=== PATIENT | female | born 1945 | race Two or more races ===

== ENCOUNTER 2016-12-11 10:34 | Inpatient (IN) | payer OTHER ==
[~2016-12-11 10:34] MED LIST: BACITRACIN 50,000 UNITS/10 ML SYR IRR ONE; BUPIVACAINE 0.25% 30 ML SDV ONE; BUPIVACAINE/EPI 0.25% 30 ML SDV ONE; NS IV ONE; THROMBIN (BOVINE) 20,000 UNIT VIAL TP ONE; TRANEXAMIC ACID IV ONE
[2016-12-11] MEDS ORDERED: LIDOCAINE 1% 2 ML INJ ONE (11:57)
[2016-12-11] MEDS ORDERED: DEXMEDETOMIDINE HCL 400 MCG in NS 100 ML IV ONE (12:00)
[2016-12-11] MEDS ORDERED: ceFAZolin 2 GM/DEXTROSE 100 ML IV ONE (12:30)
--- NOTE | 2016-12-11 12:35 | PDHPUP ---
History & Physical Update H&P update statement: This history and physical update is based on an assessment of the patient which was completed after admission or registration (within 24 hours), but prior to the surgery/procedure. H&P update: H&P reviewed & patient examined, no change in patient's condition since H&P completed
--- NOTE | 2016-12-11 12:37 | CPEKG ---
Heart Rate: 65 RR Interval: 923 P-R Interval: 140 QRSD Interval: 74 QT Interval: 408 QTC Interval: 425 P [place]: 74 QRS [place]: 63 T Wave [place]: 82 EKG Severity - NORMAL ECG - EKG Impression: SINUS RHYTHM Electronically Signed By: Ortiz Boo 12-Dec-2016 12:36:42
[2016-12-11 12:49] LABS: ANION GAP 10 mEq/L (8-16); CALCIUM 9.9 mg/dL (8.5-10.4); CARBON DIOXIDE 23 mEq/l (22-31); CHLORIDE 101 mEq/L (97-110); CREATININE 0.9 mg/dL (0.6-1.0); GLOMERULAR FILTRATION RATE > 60; GLUCOSE 117 mg/dL (70-100); POTASSIUM 4.1 mEq/L (3.5-5.2); SODIUM 134 mEq/L (134-144)
--- NOTE | 2016-12-11 12:52 | PDANEPAE ---
ANE History of Present Illness 71 YO FEMALE with B leg paresthesias. ANE Past Medical History - Cardiovascular History Hx Hypertension: Yes Hx Arrhythmias: No Hx Chest Pain: No Hx Coronary Artery / Peripheral Vascular Disease: No Hx CHF / Valvular Disease: No Hx Palpitations: No - Pulmonary History Hx COPD: No Hx Asthma/Reactive Airway Disease: No Hx Recent Upper Respiratory Infection: No Hx Oxygen in Use at Home: No - Neurologic History Hx Cerebrovascular Accident: No Hx Seizures: No Hx Dementia: No - Endocrine History Hx Diabetes: Yes - Renal History Hx Renal Disorders: No - Liver History Hx Hepatic Disorders: No - Neurological & Psychiatric Hx Hx Neurological and Psychiatric Disorders: Yes - Cancer History Hx Cancer: No - Congenital Disorder History Hx Congenital Disorders: No - GI History Hx Gastrointestinal Disorders: Yes - Chronic Pain History Chronic Pain: Yes (LOWER BAKC AND BILATERAL LEGS AND SHOULDERS) ANE Review of Systems Review of Systems: no URI/cough/fevers x2 weeks - Exercise capacity METS (RN): 3 METS - Systems Constitutional: Reports: no symptoms Cardiac: Reports: no symptoms Respiratory: Reports: no symptoms Neurological: Reports: paresthesia (bilateral legs up to groin) ANE Patient History - Allergies Allergies/Adverse Reactions: No Known Allergies Allergy (Unverified 12/08/16 17:25) - Home Medications Home Medications: Acetaminophen [Tylenol 325mg (*)] 650 mg PO Q6 PRN 12/07/16 [Last Taken 06:00] Ibuprofen [Motrin (*)] 200 mg PO DAILY PRN 12/07/16 [Last Taken 1 Week Ago] Lovastatin 10 mg PO DAILY 12/07/16 [Last Taken 12/05/16] Omeprazole 40 mg PO DAILY 12/07/16 [Last Taken 12/10/16] glyBURIDE [Glyburide] 5 mg PO DAILY 12/07/16 [Last Taken 12/05/16] metFORMIN HCL [Metformin HCl] 500 mg PO DAILY 12/07/16 [Last Taken 12/05/16] Codeine 30 mg (*) 1 tab DAILY 12/08/16 [Last Taken 12/10/16] GABAPENTIN 1 tab BID 12/08/16 [Last Taken 12/10/16] - NPO status NPO Since - Liquids (Date): 12/11/16 NPO Since - Liquids (Time): 06:00 NPO Since - Solids (Date): 12/10/16 NPO Since - Solids (Time): 19:00 - Anes Hx Hx Anesthesia Complications (with details): never had anesthesia before - Smoking Hx Smoking Status: Former smoker (quit about 7 years ago) Marijuana use: No - Alcohol Use Alcohol Use: None - Family Anes Hx Family Anes Hx: neg - N/A ANE Labs/Vital Signs - Labs Result Diagrams: 12/11/16 12:08 12/11/16 12:08 - Vital Signs Blood Pressure: 127/64 Heart Rate: 65 Respiratory Rate: 16 O2 Sat (%): 95 Height: 149.86 cm Weight: 42.6 kg ANE Physical Exam - Airway Mallampati Score: Class 2 Mouth exam: dentures (upper) - Pulmonary Pulmonary: clear to auscultation - Cardiovascular Cardiovascular: regular rate and rhythym - ASA Status ASA Status: IV
[2016-12-11 12:59] LABS: % IMMATURE GRANULYOCYTES 0.1 % (0.0-1.1); ABSOLUTE IMMATURE GRANULOCYTES 0.01 10^3/uL (0.00-0.10); ADD DIFF? NO; ADD MORPH? NO; ADD SCAN? NO; ATYPICAL LYMPHOCYTE FLAG 0 (0-99); FRAGMENT RBC FLAG 0 (0-99); HEMATOCRIT 38.2 % (38.0-47.0); LEFT SHIFT FLG 0 (0-99); LIPEMIA HEMOLYSIS FLAG 90 (0-99); MEAN CELL HEMOGLOBIN 32.4 pg (27.9-34.1); MEAN CELL VOLUME 95.3 fL (81.5-99.8); MEAN PLATELET VOLUME 11.1 fL (8.7-11.7); PLATELET CLUMPS FLAG 0 (0-99); PLATELET COUNT 163 10^3/uL (150-400); RED BLOOD CELL COUNT 4.01 10^6/uL (4.18-5.33); RED CELL DISTRIBUTION WIDTH 13.2 % (11.5-15.2)
[2016-12-11] MEDS ORDERED: LR 1,000 ML IV ONE (13:00)
[2016-12-11] MEDS ORDERED: LIDOCAINE 1% 5 ML SDV ID PRN (13:00)
[2016-12-11] MEDS ORDERED: PROPOFOL/EMULSION 500 MG/50 ML BOTTLE IV ONE ×2 (13:11)
[2016-12-11] MEDS ORDERED: REMIFENTANIL HCL 1 MG VIAL ONE (13:11)
[2016-12-11] MEDS ORDERED: fentaNYL 100 MCG/2 ML INJ ONE ×2 (13:11→18:48)
[2016-12-11] MEDS ORDERED: LIDOCAINE 2% 5 ML SDV ONE (13:13)
[2016-12-11] MEDS ORDERED: DEXAMETHASONE 4 MG/ML VIAL ONE (13:13)
[2016-12-11] MEDS ORDERED: CITRATE DEXTROSE SOLN 500 ML BAG ONE (14:11)
[2016-12-11] MEDS ORDERED: TRANEXAMIC ACID IV ONE (14:30)
[2016-12-11] MEDS ORDERED: NS IV ONE (14:30)
[2016-12-11] MEDS ORDERED: ALBUMIN 5% 250 ML BOTTLE IV ONE ×2 (15:09→17:12)
[2016-12-11] MEDS ORDERED: epHEDrine SULFATE 10 MG/ML SYR ONE ×2 (15:11→16:09)
[2016-12-11] MEDS ORDERED: INSULIN REGULAR HUMAN 100 UNIT/ML SC ONE ×3 (15:19→19:33)
[2016-12-11] MEDS ORDERED: THROMBIN (BOVINE) 20,000 UNIT VIAL TP ONE (16:12)
[2016-12-11] MEDS ORDERED: ceFAZolin 1 GM VIAL ONE ×2 (16:18→19:12)
[2016-12-11] MEDS ORDERED: PROPOFOL 200 MG/20 ML VIAL ONE (18:48)
[2016-12-11] MEDS ORDERED: ONDANSETRON 4 MG/2 ML VIAL ONE (19:54)
[2016-12-11] MEDS ORDERED: PROMETHAZINE HCL 25 MG/ML INJ IVP/IM PRN (20:09)
[2016-12-11] MEDS ORDERED: ACETAMINOPHEN 325 MG TAB PO PRN (20:09)
[2016-12-11] MEDS ORDERED: NALOXONE HCL 0.4 MG/ML INJ IVP PRN ×2 (20:09→20:25)
[2016-12-11] MEDS ORDERED: HYDROCODONE/APAP 10/325 TAB PO PRN (20:09)
[2016-12-11] MEDS ORDERED: HYDROmorphONE/DILAUDID 1 MG/ML SYR IVP PRN (20:09)
[2016-12-11] MEDS ORDERED: HYDROmorphONE/DILAUDID 6 MG/30 ML PCA IV PRN (20:09)
[2016-12-11] MEDS ORDERED: LABETALOL HCL 5 MG/ML 20 ML MDV ONE (20:09)
[2016-12-11] MEDS ORDERED: oxyCODONE IR 5 MG TAB PO PRN (20:09)
[2016-12-11] MEDS ORDERED: METHOCARBAMOL 750 MG TAB PO PRN (20:09)
[2016-12-11] MEDS ORDERED: ONDANSETRON 4 MG/2 ML VIAL IVP PRN ×2 (20:09→20:14)
[2016-12-11] MEDS ORDERED: LACTULOSE 20 GM/30 ML UDCUP PO PRN (20:14)
[2016-12-11] MEDS ORDERED: BISACODYL 10 MG SUPP PR PRN (20:14)
[2016-12-11] MEDS ORDERED: ONDANSETRON DISINTEGRATING 4 MG TAB PO PRN (20:14)
[2016-12-11] MEDS ORDERED: MAGNESIUM HYDROXIDE 30 ML UDCUP PO PRN (20:14)
[2016-12-11] MEDS ORDERED: diphenhydrAMINE 25 MG CAP PO PRN (20:14)
[2016-12-11] MEDS ORDERED: NS 1,000 ML IV SCH (20:15)
--- NOTE | 2016-12-11 20:20 | SOAPPROG ---
SOAP Progress Note Assessment/Plan: Assessment: 71 yo F sp C3-7 ACDF and C2-7 posterior decompression/fusion Plan: stable PT/OT hard collar please call with neuro changes scd/martín/lovenox starts POD #3 12/11/16 20:19 Subjective: + neck pain, no arm pain Objective: Vital Signs Temp Pulse Resp BP Pulse Ox 36.5 C 65 16 127/64 H 95 12/11/16 11:05 12/11/16 12:53 12/11/16 12:53 12/11/16 12:53 12/11/16 12:53 Laboratory Results 12/11/16 12:46 12/11/16 12:08 somnolent PERRL, no facial droop MAMIE x 4 + light touch ICD10 Worksheet Patient Problems: Problems Problem Status Onset Fusion of spine of cervical region Acute - ICD10 Problem Qualifiers (1) Fusion of spine of cervical region
[2016-12-11] MEDS ORDERED: LABETALOL HCL 5 MG/ML 20 ML MDV IVP PRN (20:25)
[2016-12-11] MEDS ORDERED: LR 250 ML IV PRN (20:25)
[2016-12-11] MEDS ORDERED: ALBUTEROL 3 ML DEYVIAL IH PRN (20:25)
[2016-12-11] MEDS ORDERED: PROMETHAZINE HCL 25 MG/ML INJ IVP PRN (20:25)
[2016-12-11] MEDS ORDERED: DIAZEPAM 10 MG/2 ML SYR ONE (21:46)
[2016-12-11] MEDS: DIAZEPAM 10 MG/2 ML SYR IVP PRN ×2 (21:51→23:59)
--- NOTE | 2016-12-11 21:55 | POSTANESTH ---
Post Anesthetic Evaluation Cardiovascular Status: Normal, Stable Respiratory Status: Normal, Stable Level of Consciousness/Mental Status: Can Participate in Eval, Mildly Sleepy, Arousable Pain Control: Inadeq, Add Tx Required Nausea/Vomiting Control: Adequate, Prn Tx Ordered Complications Possibly Related to Anesthesia: None Noted (Pt reports pain in her neck and phlegm.)
[2016-12-11] MEDS ORDERED: ceFAZolin 2 GM/DEXTROSE 100 ML IV SCH (22:00)
[2016-12-12] MEDS: morphINE SR 15 MG TAB PO SCH ×3 (00:14→20:18)
[2016-12-12] MEDS: FAMOTIDINE 20 MG TAB PO SCH ×2 (00:14→08:31)
[2016-12-12] MEDS: SENNOSIDES/DOCUSATE SODIUM TAB PO SCH ×3 (00:15→20:18)
[2016-12-12] MEDS: ACETAMINOPHEN 500 MG TAB PO SCH ×4 (01:17→22:54)
[2016-12-12] MEDS: POLYETHYLENE GLYCOL 3350 17 GM PKT PO SCH ×4 (01:24→23:35)
[2016-12-12 04:37] LABS: % IMMATURE GRANULYOCYTES 0.2 % (0.0-1.1); ABSOLUTE IMMATURE GRANULOCYTES 0.03 10^3/uL (0.00-0.10); ADD DIFF? NO; ADD MORPH? NO; ADD SCAN? NO; ATYPICAL LYMPHOCYTE FLAG 0 (0-99); FRAGMENT RBC FLAG 0 (0-99); HEMATOCRIT 28.8 % (38.0-47.0); HEMOGLOBIN 9.4 g/dL (12.6-16.3); LEFT SHIFT FLG 0 (0-99); LIPEMIA HEMOLYSIS FLAG 80 (0-99); MEAN CELL HEMOGLOBIN 32.3 pg (27.9-34.1); MEAN CELL HEMOGLOBIN CONCENTR. 32.6 g/dL (32.4-36.7); MEAN PLATELET VOLUME 11.6 fL (8.7-11.7); PLATELET CLUMPS FLAG 0 (0-99); PLATELET COUNT 129 10^3/uL (150-400); RED BLOOD CELL COUNT 2.91 10^6/uL (4.18-5.33); RED CELL DISTRIBUTION WIDTH 13.3 % (11.5-15.2)
[2016-12-12 05:03] LABS: ANION GAP 9 mEq/L (8-16); CALCIUM 8.6 mg/dL (8.5-10.4); CARBON DIOXIDE 22 mEq/l (22-31); CHLORIDE 105 mEq/L (97-110); CREATININE 0.8 mg/dL (0.6-1.0); GLOMERULAR FILTRATION RATE > 60; GLUCOSE 58 mg/dL (70-100); SODIUM 136 mEq/L (134-144)
--- NOTE | 2016-12-12 06:16 | GOP ---
[f rep st] OPERATIVE REPORT DATE OF OPERATION: 12/11/2016 SURGEON: López Raymond MD [employer] TEAM MEMBER: Shaan Holly PA-C. ANESTHESIA: General endotracheal. PREOPERATIVE DIAGNOSIS: 1. Severe, progressive, multilevel cervical spondylitic myelopathy. 2. Severe multilevel cervical critical spinal stenosis with spinal cord compression. 3. Higher surgical candidate, given age, comorbidities, and required surgical intervention. 4. Severe kyphosis of the cervical spine and loss of cervical lordosis. POSTOPERATIVE DIAGNOSIS: 1. Severe, progressive, multilevel cervical spondylitic myelopathy. 2. Severe multilevel cervical critical spinal stenosis with spinal cord compression. 3. Higher surgical candidate, given age, comorbidities, and required surgical intervention. 4. Severe kyphosis of the cervical spine and loss of cervical lordosis. PROCEDURE PERFORMED: 1. Complete C3-4, C4-5, C5-6, and C6-7 anterior cervical diskectomy and arthrodesis with 4 structur al PEEK interbody spacers, local autograft, and demineralized bone matrix. 2. Partial C4, C5, and C6 vertebral corpectomies for decompression of spinal canal/spinal cord. 3. Placement of a LnK CastleLoc-P anterior cervical plate with self-drilling screws from C3 through C7. 4. Use of intraoperative microscopy and fluoroscopy. FINDINGS: ESTIMATED BLOOD LOSS: 100 cc. INDICATIONS: The patient is a 71-year-old woman with severe progressive myelopathy secondary to sev ere multilevel cervical spondylosis and spinal cord compression. She presents now for a multilevel cervical decompression and stabilization. Note that this case was discussed with several of my mayur eagues and they agreed that they would perform the same or very similar surgical approaches. DESCRIPTION OF PROCEDURE: After informed consent was obtained, the patient was taken to the operati ng room and placed in the supine position with the head in the halter retractor system. The anterio r cervical region was prepped and draped in a sterile fashion. After fluoroscopic localization of c orrect levels, the subcutaneous and intramuscular tissues were infiltrated with local anesthesia. A horizontal incision was then created at the level of the C5 vertebral body. This was carried throu gh the platysmal layer using monopolar electrocautery and carried in the avascular plane between the sternocleidomastoid and carotid sheath laterally, and the strap muscles were taken from esophagus m edially, down to the prevertebral fascia, which was carefully incised with Metzenbaum scissors. The C3-4, C4-5, C5-6, and C6-7 interspaces were identified and re-verified using intraoperative fluoros copy. There were very large osteophytes that were carefully removed and harvested for local autogra ft. These [place] distraction pins were then serially inserted, first at C3-4, than at C4-5, then at C5-6, then C6-7, with a slight amount of distraction across each interspace. Complete diskectomies were performed with removal posteriorly between the osteophytes and posterior longitudinal ligament as well in preparation of the endplates. There was an extensive amount of drilling required due to the significant irregularities in endplates and vertebral bodies, and very large osteophytes, as we ll as the significant kyphotic angulation of her cervical spine. Approximately 50% or more of the C 4, C5, and C6 vertebral bodies was drilled away for partial C4, C5, and C6 vertebral corpectomies. Following adequate decompression of the thecal sac and spinal cord, as well as the bilateral neural foramina at each of the levels from C3 through C7, the interspaces were carefully packed with the ap propriate structural PEEK interbody spacers, local autograft, and demineralized bone matrix at each of the 4 levels under fluoroscopic image guidance. After all the distraction was removed, an approp riately sized LnK CastleLoc-P anterior cervical plate was then placed and secured from C3 through C7 under biplanar and fluoroscopic image guidance. Following verification of good position of the jorge te and screws, locking mechanisms were engaged. A drain was placed. The subcutaneous and intramusc ular tissues were re-infiltrated with local anesthesia. The anterior holes of the plate were gently packed with a residual local autograft, and the wound was closed in a layered fashion using interru pted Vicryl sutures, followed by Steri-Strips on the skin. COMPLICATIONS: None. DISPOSITION: The patient remained intubated and was repositioned for the posterior portion of the o peration. POSTERIOR PORTIO OF PROCEDURE PREOPERATIVE DIAGNOSIS: 1. Severe, progressive, multilevel cervical spondylitic myelopathy. 2. Severe multilevel cervical critical spinal stenosis with spinal cord compression. 3. Higher surgical candidate, given age, comorbidities, and required surgical intervention. 4. Severe kyphosis of the cervical spine and loss of cervical lordosis. POSTOPERATIVE DIAGNOSIS: 1. Severe, progressive, multilevel cervical spondylitic myelopathy. 2. Severe multilevel cervical critical spinal stenosis with spinal cord compression. 3. Higher surgical candidate, given age, comorbidities, and required surgical intervention. 4. Severe kyphosis of the cervical spine and loss of cervical lordosis. NAME OF PROCEDURE: 1. C2 through C7 posterior segmental (pedicle screw and a lateral mass screw) fixation, and postero lateral fusion from C2 through C7 with local autograft. 2. C2 through C7 laminectomies for decompression of the central canal and spinal cord. 3. Use of intraoperative microscopy, fluoroscopy, and computer volumetric stereotactic navigation w ith intraoperative neurophysiologic testing. [employer]AT TEAM MEMBER: Shaan Holly PA-C. ANESTHESIA: General endotracheal. ESTIMATED BLOOD LOSS: 150 cc. COMPLICATIONS: None. INDICATIONS: The patient is a 71-year-old woman with severe progressive myelopathy secondary to sev ere multilevel cervical spondylosis and spinal cord compression. She presents now for a multilevel cervical decompression and stabilization. Note that this case was discussed with several of my mayur eagues and they agreed that they would perform the same or very similar surgical approaches. DESCRIPTION OF PROCEDURE: After the anterior portion of the procedure was completed, the patient wa s repositioned prone with the head in the [place] balance screwhead polisher. The posterior cervical and suboccip ital, and upper thoracic regions were prepped and draped in a sterile fashion. After fluoroscopic l ocalization of the correct levels, the subcutaneous and intramuscular tissues were infiltrated with local anesthesia. A midline linear incision was then created from approximately C2 through C7. Thi s was carried down to the fascial layer,, which was then incised using monopolar electrocautery, and carried in the subcostal plane, along the spinous processes and out the lamina bilaterally at C2 th rough C7. Intraoperative fluoroscopy was again utilized to verify the correct levels. Following th is, the dissection was carried out over the facet joints, which were very large and arthritic. Thes e very large growths were harvested for local autograft. Following this, the O-arm neuronavigationa l system was brought in and using computer volumetric stereotactic navigation, pedicle screws were p laced at C2 bilaterally, as well as a lateral mass screw fixation C3, C4, C5, and C6 with pedicle sc rews at C7. Each individual screw was tested neurophysiologically with monopolar electrostimulation and interpretation of the potentials by the surgeon. The O-arm neuronavigational system was then u sed to create new 3D reconstructed images for evaluation of the hardware. All of the screws were in good position. The left C2 screw was very slightly medial, but stimulated at 14 milliamperes. I u sed the image navigation to see if I could find a more ideal trajectory and I could not. We advance d the screw slightly and retested neurophysiologically, and this had increased it to 20 milliamperes . I felt that it was in the patient's best interest to leave it in place, even though it is possibl e that it could cause problems and need to be removed. Following this, the rods were contoured in p lace and secured under maximal lordosis. The facet joints and remaining lamina, and lateral masses were then extensively decorticated from C2 through C7, and the local autografts from the laminectomi es that were performed at C2 through C7 for decompression of the spinal canal were cleaned of soft t issue and placed out laterally for posterolateral fusion from C2-C7. A drain was then placed. The subcutaneous and intramuscular tissues were re-infiltrated with local anesthesia. Biplanar fluorosc opy was utilized to re-verify good position of all screws, rods, anterior plate, and interbody graft s. A drain was placed and the wound was closed in a layered fashion using interrupted Vicryl suture s, followed by Steri-Strips on the skin. DISPOSITION: The patient is currently in the process of being repositioned for extubation. /[id number]/MODL
--- NOTE | 2016-12-12 07:43 | SOAPPROG ---
SOAP Progress Note Assessment/Plan: Assessment: POD #1 sp C3-7 ACDF, posterior C2-7 posterior decompression/fusion posterior neck pain consistent with procedure neuro stable cervical collar a bit large, will request smaller size (Rn to call [facility]) Plan: OK for floor will consult hospitalist for assistance in medical mgmt/diabetes Continue JOSIE drains to bulb suction advance activity as tolerated with PT and OT will have speech eval for swallowing Discussed with Dr. Ny 12/12/16 07:39 12/12/16 07:42 Subjective: awake, alert, conversant, pain controlled. Objective: Vital Signs Temp Pulse Resp BP Pulse Ox 36.5 C 74 11 L 126/45 H 100 12/12/16 00:00 12/12/16 06:00 12/12/16 06:00 12/12/16 06:00 12/12/16 06:00 Laboratory Results 12/12/16 04:06 12/12/16 04:06 12/11/16 12/12/16 12/13/16 05:59 05:59 05:59 Intake Total 2812 Output Total 885 Balance 1927 Ant JPml 105 Post JOSIE 205ml Neuro: Awake, alert PEÑALOZA to command, sens +LT, strength equal ICD10 Worksheet Patient Problems: Problems Problem Status Onset Fusion of spine of cervical region Acute
[2016-12-12] MEDS: PRAVASTATIN SODIUM 10 MG TAB PO SCH (08:25)
[2016-12-12] MEDS: PANTOPRAZOLE SODIUM 40 MG TAB PO SCH (08:30)
[2016-12-12] MEDS ORDERED: glyBURIDE 5 MG TAB PO SCH (09:00)
[2016-12-12] MEDS ORDERED: metFORMIN HCL 500 MG TAB PO SCH (09:00)
[2016-12-12] MEDS: GABAPENTIN 300 MG CAP PO SCH ×3 (11:17→22:54)
[2016-12-12] MEDS: GABAPENTIN PO SCH ×2 (11:26→11:27)
[2016-12-12] MEDS: oxyCODONE IR 5 MG TAB PO PRN ×2 (12:48→15:39)
[2016-12-12] MEDS ORDERED: D50W 25 GM/50 ML SYR IVP PRN (14:27)
--- NOTE | 2016-12-12 15:07 | GCON ---
[f rep st] CONSULTATION DATE OF CONSULTATION: 12/12/2016 REFERRING PHYSICIAN: López Raymond MD REASON FOR CONSULTATION: Postoperative hypoglycemia in the setting of a patient with known type 2 d iabetes mellitus. HISTORY OF PRESENT ILLNESS: This is a 71-year-old female with a history of type 2 diabetes mellitus on metformin and glyburide and it is postoperative day 1 C3-7 anterior cervical fusion and posterio r C2 through 7 decompression infusion whom I have been asked to see due to postoperative hypoglycemi a and management of diabetes. The patient had a bout of hypoglycemia down to 58 at 4 o'clock this m orning. Per report, she received some subcu insulin during surgery. During the time of my exam, th e patient states that her blood sugars have been well controlled on orals. She has not been eating much and has been losing some weight. She has really been struggling with peripheral neuropathy in her legs as well as numbness in her hands which she is hoping will be corrected with this surgery. She denies any fevers or chills. She denies any chest pain or shortness of breath. PAST MEDICAL HISTORY: 1. Type 2 diabetes mellitus. 2. Peripheral neuropathy. 3. GERD. 4. Dyslipidemia. PAST SURGICAL HISTORY: None other than her recent cervical fusion as detailed in the HPI. HOME MEDICATIONS: Reviewed. Refer to [facility] for details. ALLERGIES: No known drug allergies. SOCIAL HISTORY: The patient is a former smoker and quit 7 years ago. She denies any alcohol or ill icit drug use. She lives independently and receives Meals on Wheels. FAMILY HISTORY: Reviewed and noncontributory. REVIEW OF SYSTEMS: Comprehensive 10-point review of systems was done and is negative, except for as mentioned in the HPI. PHYSICAL EXAM: VITAL SIGNS: Blood pressure 125/51, pulse of 90, respiratory rate 15, O2 saturation 100% on 1 L, temperature afebrile. GENERAL: No acute distress. HEAD: Normocephalic, atraumatic. NECK: In a cervical collar. CARDIOVASCULAR: S1, S2. No JVD. No lower extremity edema. PULMON HOWIE: Lungs are clear. No wheezes, rales, or rhonchi. Slightly diminished in the bases. ABDOMEN: Soft, nontender, nondistended. No guarding or rebound tenderness. Normoactive bowel sounds. EXTR EMITIES: No clubbing or cyanosis. NEURO: Cranial nerves 2-12 grossly intact. No focal motor or s ensory deficits. DIAGNOSTICS: WBC is 12, hemoglobin 9.4, hematocrit 28.8, platelets 129. Sodium 136, potassium 4, c hloride 105, CO2 22, BUN 14, creatinine 0.8, glucose was 58 and again this was at 4 o'clock this mor jean. Most recent blood sugar is 174. Cervical spine x-ray done this morning was visualized showin g cervical instrumentation and fusion C2-C7. ASSESSMENT/PLAN: 1. This is a 71-year-old female, postoperative day 1, C3 through 7 anterior fusion and posterior C2 , 3, 7 decompression whom I have been asked to see due to episodic hypoglycemia, most likely due to insulin administration in a patient who has not been eating. Plan: At this point, our goal is to k eep her blood sugars less than 180. I will hold her home dose of glyburide as well as metformin unt il she starts eating. We will start her on a low-dose correctional insulin protocol as needed and m onitor blood sugars a.c. and h.s. 2. Anemia. Most likely due to expected blood loss from surgery without any signs of overt bleeding currently. Plan: Will repeat H and H in the morning. Thank you for allowing me to participate in the care of this patient. The hospitalist service will continue to follow along with you. /[id number]/MODL
[2016-12-12] MEDS: INSULIN LISPRO 100 UNIT/ML SC SCH (17:19)
[2016-12-12] MEDS: DIAZEPAM 5 MG TAB PO PRN (22:54)
[2016-12-13] MEDS: ACETAMINOPHEN 500 MG TAB PO SCH ×3 (05:34→20:56)
[2016-12-13] MEDS: oxyCODONE IR 5 MG TAB PO PRN ×4 (05:39→18:24)
--- NOTE | 2016-12-13 08:29 | SOAPPROG ---
GREG Progress Note Assessment/Plan: Assessment: POD #2 sp C3-7 ACDF, posterior C2-7 posterior decompression/fusion feeling better today with improved sensation in hands neuro stable cervical collar a bit large, will request smaller size - RN will change this out. Plan: transfer to floor Continue JOSIE drains to bulb suction advance activity as tolerated with PT and OT will have speech eval for swallowing Discussed with Dr. Ny Subjective: out of bed in chair. Feeling "better" today. Denies new weakness tingling. Has baseline "neuropathy" but feels that the sensation in her hands has improved. Objective: Vital Signs Temp Pulse Resp BP Pulse Ox 36.8 C 96 10 L 118/42 L 100 12/13/16 07:48 12/13/16 07:48 12/13/16 07:48 12/13/16 07:48 12/13/16 07:48 Laboratory Results 12/12/16 04:06 12/12/16 04:06 12/12/16 12/13/16 12/14/16 05:59 05:59 05:59 Intake Total 4652 1815 Output Total 885 660 Balance 1927 1155 Neuro: PEÑALOZA, Sens + LT Ant/Post dressings : CDI Post JOSIE: 290 ml Ant JOSIE: 70ml ICD10 Worksheet Patient Problems: Problems Problem Status Onset Fusion of spine of cervical region Acute
[2016-12-13] MEDS: INSULIN LISPRO 100 UNIT/ML SC SCH ×3 (08:33→17:40)
[2016-12-13] MEDS: GABAPENTIN 300 MG CAP PO SCH ×3 (08:34→20:56)
[2016-12-13] MEDS: PRAVASTATIN SODIUM 10 MG TAB PO SCH (08:35)
[2016-12-13] MEDS: morphINE SR 15 MG TAB PO SCH ×2 (08:35→20:56)
[2016-12-13] MEDS: PANTOPRAZOLE SODIUM 40 MG TAB PO SCH (08:35)
[2016-12-13] MEDS: SENNOSIDES/DOCUSATE SODIUM TAB PO SCH ×2 (08:35→20:57)
[2016-12-13] MEDS: POLYETHYLENE GLYCOL 3350 17 GM PKT PO SCH ×3 (08:36→20:57)
[2016-12-13] MEDS ORDERED: glyBURIDE 5 MG TAB PO SCH (09:00)
[2016-12-13] MEDS: metFORMIN HCL 500 MG TAB PO SCH (09:07)
[2016-12-13] MEDS: METHOCARBAMOL 750 MG TAB PO PRN (09:53)
--- NOTE | 2016-12-13 12:51 | HOSPPROG ---
Hospitalist Progress Note Assessment/Plan: This 71-year-old female postoperative day #2 C3-C7 anterior cervical fusion and posterior C2-C7 decompression with: # history of type 2 diabetes mellitus with postoperative labile blood sugars. She had a episode of hypoglycemia yesterday. Her sugars are now running in the high 190s to 200s. Plan: - metformin was restarted today - I would recommend holding her sulfonylurea while in the hospital since these medications are notorious for causing hypoglycemia and patient's were not eating - will increase correctional insulin to standard dosing from low dosing hospital medicine service will continue to follow along with you. Subjective: She continues to have pain in the back of her neck. She denies any new numbness or weakness. She is tolerating a diet. Denies any fevers or chills. Denies any chest pain or shortness of breath. Objective: Vital Signs Temp Pulse Resp BP Pulse Ox 37.2 C 105 H 16 128/67 H 100 12/13/16 11:49 12/13/16 11:49 12/13/16 11:49 12/13/16 11:49 12/13/16 11:49 Laboratory Results 12/12/16 04:06 12/12/16 04:06 12/12/16 12/13/16 12/14/16 05:59 05:59 05:59 Intake Total 2812 1815 412 Output Total 885 660 Balance 1927 1155 412 - Physical Exam Cardiovascular: regular rate and rhythym, no murmur, rub, or gallop Respiratory: no respiratory distress, no rales or rhonchi, clear to auscultation Gastrointestinal: normoactive bowel sounds, soft, non-tender abdomen, no palpable masses Neurologic: AAOx3, CN II-XII Intact, No facial droop ICD10 Worksheet Patient Problems: Problems Problem Status Onset Fusion of spine of cervical region Acute
[2016-12-13] MEDS: DIAZEPAM 5 MG TAB PO PRN (20:57)
[2016-12-14] MEDS: oxyCODONE IR 5 MG TAB PO PRN ×4 (00:40→18:10)
[2016-12-14] MEDS: METHOCARBAMOL 750 MG TAB PO PRN ×3 (00:40→18:38)
[2016-12-14 04:23] VITALS: RESP 16
[2016-12-14] MEDS: DIAZEPAM 5 MG TAB PO PRN (05:40)
[2016-12-14] MEDS: ACETAMINOPHEN 500 MG TAB PO SCH ×2 (05:40→13:47)
[2016-12-14] MEDS: GABAPENTIN 300 MG CAP PO SCH ×2 (08:54→17:11)
[2016-12-14] MEDS: morphINE SR 15 MG TAB PO SCH (08:54)
[2016-12-14] MEDS: PRAVASTATIN SODIUM 10 MG TAB PO SCH (08:54)
[2016-12-14] MEDS: metFORMIN HCL 500 MG TAB PO SCH (08:54)
[2016-12-14] MEDS: PANTOPRAZOLE SODIUM 40 MG TAB PO SCH (08:55)
[2016-12-14] MEDS: SENNOSIDES/DOCUSATE SODIUM TAB PO SCH (08:56)
[2016-12-14] MEDS: POLYETHYLENE GLYCOL 3350 17 GM PKT PO SCH ×2 (08:57→17:11)
[2016-12-14] MEDS ORDERED: ENOXAPARIN 40 MG/0.4 ML SYR SC SCH (09:00)
[2016-12-14 11:19] VITALS: O2SAT 100
--- NOTE | 2016-12-14 11:23 | SOAPPROG ---
SOAP Progress Note Assessment/Plan: Assessment: 71 yo F POD #3 C3-7 ACDF and C2-7 posterior decompression/fusion Plan: stable and doing well overall :) PT/OT hard collar please call with neuro changes likely dc home today likely remove anterior JOSIE scd/martín/lovenox for dvt prophylaxis please call with neuro changes patient seen by Dr Ny 12/11/16 20:19 12/14/16 11:20 Subjective: neck pain improving, no arm pain Objective: Vital Signs Temp Pulse Resp BP Pulse Ox 36.7 C 103 H 16 105/45 L 100 12/14/16 11:18 12/14/16 11:18 12/14/16 11:18 12/14/16 11:18 12/14/16 11:18 Laboratory Results 12/12/16 04:06 12/12/16 04:06 12/13/16 12/14/16 12/15/16 05:59 05:59 05:59 Intake Total 1815 882 Output Total 660 120 1 Balance 1155 762 -1 AAOx4, +FC PERRL, EOMI, no facial droop 5/5 + light touch C/D/I x 2 ICD10 Worksheet Patient Problems: Problems Problem Status Onset Fusion of spine of cervical region Acute - ICD10 Problem Qualifiers (1) Fusion of spine of cervical region
--- NOTE | 2016-12-14 11:32 | PDIAF ---
- Diagnosis Code Status: Full Code - Medication Management Discharge Medications: Medications to Continue on Transfer Acetaminophen [Tylenol 325mg (*)] 650 mg PO Q6 PRN 12/07/16 [Last Taken 06:00] Lovastatin 10 mg PO DAILY 12/07/16 [Last Taken 12/05/16] Omeprazole 40 mg PO DAILY 12/07/16 [Last Taken 12/10/16] glyBURIDE [Glyburide] 5 mg PO DAILY 12/07/16 [Last Taken 12/05/16] metFORMIN HCL [Metformin HCl] 500 mg PO DAILY 12/07/16 [Last Taken 12/05/16] Gabapentin [Neurontin 300 MG (*)] 300 mg PO TID 12/08/16 [Last Taken 12/10/16] Ascomp With Codeine Cap 1 each PO DAILY 12/12/16 [Last Taken 12/10/16] Methocarbamol [Robaxin 750 mg (*)] 750 mg PO QID PRN #0 tab 12/14/16 [Last Taken Unknown] morphINE SR [Ms Contin/Oramorph 15 mg (*)] 15 mg PO BID #0 tab 12/14/16 [Last Taken Unknown] oxyCODONE IR [Oxycodone Ir (*)] 5 - 10 mg PO Q4HRS PRN #0 tab 12/14/16 [Last Taken Unknown] Discharge Medications: Refer to the Discharge Home Medication list for PRN reason. - Orders Services needed: Registered Nurse, Physical Therapy, Occupational Therapy Diet Recommendation: no restrictions on diet Diet Texture: Dysphagia 1 - Pureed, [place] Thick Liquids, Meds Whole w/Liquids, Meds Whole in Puree Equipment: call with JOSIE output on 12/15 to [phone] - Follow Up Care Current Providers and Referrals: NONE *PRIMARY CARE P,. [Primary Care Provider] -
[2016-12-14] MEDS: INSULIN LISPRO 100 UNIT/ML SC SCH ×3 (12:35→18:07)
--- NOTE | 2016-12-14 12:54 | HOSPPROG ---
Hospitalist Progress Note Assessment/Plan: This 71-year-old female postoperative day #3 C3-C7 anterior cervical fusion and posterior C2-C7 decompression with: # history of type 2 diabetes mellitus with postoperative labile blood sugars. She had a episode of hypoglycemia. Her sugars are now running in the high 190s to 200s. Plan: - metformin was restarted - I would recommend holding her sulfonylurea while in the hospital since these medications are notorious for causing hypoglycemia - increase correctional insulin to standard dosing from low dosing pt seems ready for DC. hospital medicine service will continue to follow along with you. Subjective: Up in the chair. Still having some pain. No other issues. Objective: Vital Signs Temp Pulse Resp BP Pulse Ox 36.7 C 103 H 16 105/45 L 100 12/14/16 11:18 12/14/16 11:18 12/14/16 11:18 12/14/16 11:18 12/14/16 11:18 Laboratory Results 12/12/16 04:06 12/12/16 04:06 12/13/16 12/14/16 12/15/16 05:59 05:59 05:59 Intake Total 1815 882 Output Total 660 120 1 Balance 1155 762 -1 - Physical Exam Constitutional: no apparent distress, appears nourished, uncomfortable Eyes: PERRL, anicteric sclera, EOMI Ears, Nose, Mouth, Throat: moist mucous membranes, hearing normal, ears appear normal Cardiovascular: No JVD, No tachycardia, No edema Respiratory: no respiratory distress, no rales or rhonchi, reduced air movement Gastrointestinal: No tenderness, No ascites, No guarding Skin: warm, normal color, No erythema Musculoskeletal: no joint effusions, muscular tenderness, generalized weakness Neurologic: AAOx3 Psychiatric: interacting appropriately, not anxious, not encephalopathic, thought process linear ICD10 Worksheet Patient Problems: Problems Problem Status Onset Fusion of spine of cervical region Acute
[2016-12-14 16:45] VITALS: BP 119/61; PULSE 118; TEMP 99.5
== END 2016-12-14 18:53 | disposition home health service (06) | DRG 455 ==
LOC: F3N 10:34 → EDBD 12:15 → F2N 20:35 → F3N 12-13 09:31
PROVIDERS: ADMIT Neurological Surgery; ATTEND Neurological Surgery
DX: M47.12 Other spondylosis with myelopathy, cervical region (principal); M48.02 Spinal stenosis, cervical region; M40.202 Unspecified kyphosis, cervical region; D64.9 Anemia, unspecified
CPT/HCPCS: 92526-GN; 92610-GN; 97116-GP; 97162-GP; 97166-GO; 97530-GP; 97535-GO; C1713; G8978-GP-CK; G8979-GP-CI; G8987-GO-CL; G8988-GO-CJ; G8996-GN-CK; G8997-GN-CI; J0690; J1100; J1170; J1650; J1815; J2405; J2704; J3010; J3490; J7060; P9041

== ENCOUNTER 2017-04-12 09:17 | Inpatient (IN) | payer OTHER ==
[~2017-04-12 09:17] MED LIST changes: +ACETAMINOPHEN 500 MG TAB PO ONE; -BACITRACIN 50,000 UNITS/10 ML SYR IRR ONE; -BUPIVACAINE 0.25% 30 ML SDV ONE; -BUPIVACAINE/EPI 0.25% 30 ML SDV ONE; +GABAPENTIN 300 MG CAP PO ONE; -THROMBIN (BOVINE) 20,000 UNIT VIAL TP ONE; +fentaNYL 100 MCG/2 ML INJ IT ONE; +morphINE PF 5 MG/10 ML INJ IT ONE
[2017-04-12] MEDS ORDERED: LR 1,000 ML IV ONE (10:12)
[2017-04-12] MEDS ORDERED: LIDOCAINE 1% 2 ML INJ ID PRN (10:12)
[2017-04-12] MEDS ORDERED: BUPIVACAINE 0.25% 30 ML SDV ONE (10:33)
[2017-04-12] MEDS ORDERED: CHLORHEXIDINE GLUC HIBICLENS 118 ML BTL TP ONE (10:34)
[2017-04-12] MEDS ORDERED: THROMBIN (BOVINE) 20,000 UNIT VIAL TP ONE (10:34)
[2017-04-12] MEDS ORDERED: BACITRACIN 50,000 UNITS/10 ML SYR IRR ONE (10:35)
[2017-04-12] MEDS ORDERED: CITRATE DEXTROSE SOLN 500 ML BAG ONE (10:35)
[2017-04-12] MEDS ORDERED: MIDAZOLAM 2 MG/2 ML VIAL IVP ONE (10:38)
--- NOTE | 2017-04-12 10:38 | PDANEPAE ---
ANE History of Present Illness L3-S1 TLIF ANE Past Medical History - Cardiovascular History Hx Hypertension: Yes Hx Arrhythmias: No Hx Chest Pain: No Hx Coronary Artery / Peripheral Vascular Disease: No Hx CHF / Valvular Disease: No Hx Palpitations: No - Pulmonary History Hx COPD: No Hx Asthma/Reactive Airway Disease: No Hx Recent Upper Respiratory Infection: No Hx Oxygen in Use at Home: No Hx Sleep Apnea: No Sleep Apnea Screening Result - Last Documented: Negative - Neurologic History Hx Cerebrovascular Accident: No Hx Seizures: No Hx Dementia: No Neurologic History Comment: FREQUENT HEADACHES - Endocrine History Hx Diabetes: Yes Endocrine History Comment: NIDDM - Renal History Hx Renal Disorders: No - Liver History Hx Hepatic Disorders: No - Neurological & Psychiatric Hx Hx Neurological and Psychiatric Disorders: Yes Neurological / Psychiatric History Comment: ANXIETY - Cancer History Hx Cancer: No - Congenital Disorder History Hx Congenital Disorders: No - GI History Hx Gastrointestinal Disorders: Yes Gastrointestinal History Comment: GERD - Other Health History Other Health History: DJD/STENOSIS. FELL 12/2016 INJURED LT ARM IT IS STILL HURTING - Chronic Pain History Chronic Pain: Yes (HOPE LEGS/FEET N&T,LT ARM) - Surgical History Prior Surgeries: CERVICAL FUSION 12/11/2016 ANE Review of Systems Review of systems is: negative Review of Systems: - Exercise capacity Exercise capacity: >=4 METS METS (RN): 3 METS ANE Patient History - Allergies Allergies/Adverse Reactions: No Known Allergies Allergy (Unverified 12/08/16 17:25) - Home Medications Home medications: home medication list seen and reviewed Home Medications: Lovastatin 10 mg PO DAILY 12/07/16 [Last Taken 04/11/17 19:00] Gabapentin [Neurontin 300 MG (*)] 300 mg PO TID 12/08/16 [Last Taken 04/11/17 19 :00] Ascomp With Codeine Cap 1 each PO Q6HRS PRN 12/12/16 [Last Taken 12/10/16] Acetaminophen/ASA/Caffeine [Excedrin Tablet (*)] 1 each PO DAILY PRN 03/20/17 [ Last Taken Unknown] Dextrose [Glucose] 12 - 15 gm PO DAILY PRN 03/20/17 [Last Taken 02/22/17] Ibuprofen [Motrin (*)] 200 mg PO DAILY PRN 03/20/17 [Last Taken 1 Week Ago ~11/15] Omeprazole 40 mg PO DAILY PRN 03/20/17 [Last Taken Unknown] metFORMIN HCL [Glucophage 500 mg (*)] 500 mg PO BIDMEAL 03/20/17 [Last Taken 05/18 19:00] Omeprazole [Prilosec 20 mg] 20 mg PO DAILY 03/22/17 [Last Taken 1 Month Ago ~06/17] Benzocaine [Anbesol] 9 gm MM DAILY PRN 03/29/17 [Last Taken 1 Week Ago ~04/05/17 ] diphenhydrAMINE [Benadryl 50 MG (*)] 50 mg PO DAILY PRN 03/29/17 [Last Taken 2 Months Ago ~02/10/17] Ferrous Sulfate [Ferrous Sulf 325 MG (*)] 325 mg PO DAILY 04/04/17 [Last Taken 04/11/17 18:00] glyBURIDE [Micronase] 5 mg PO DAILY 04/04/17 [Last Taken 04/11/17 19:00] - NPO status NPO Status: no food or drink >8 hours - Anes Hx Anes Hx: no prior problems - Smoking Hx Smoking Status: Former smoker - Family Anes Hx Family Anes Hx: none ANE Labs/Vital Signs - Vital Signs Height: 149.86 cm Weight: 43.545 kg ANE Physical Exam - Airway Neck exam: spinal fusion Mallampati Score: Class 2 Mouth exam: normal dental/mouth exam - Pulmonary Pulmonary: no respiratory distress - Cardiovascular Cardiovascular: regular rate and rhythym - ASA Status ASA Status: II ANE Anesthesia Plan Anesthesia Plan: general endotracheal anesthesia
[2017-04-12] MEDS ORDERED: ACETAMINOPHEN 500 MG TAB ONE (11:14)
[2017-04-12] MEDS ORDERED: GABAPENTIN 300 MG CAP ONE (11:15)
[2017-04-12] MEDS ORDERED: ceFAZolin 2 GM/DEXTROSE 100 ML IV ONE (11:21)
[2017-04-12] MEDS ORDERED: MIDAZOLAM 2 MG/2 ML VIAL ONE (12:55)
[2017-04-12] MEDS ORDERED: ONDANSETRON 4 MG/2 ML VIAL ONE (13:01)
[2017-04-12] MEDS ORDERED: DEXAMETHASONE 4 MG/ML VIAL ONE (13:01)
[2017-04-12] MEDS ORDERED: HYDROmorphONE/DILAUDID 2 MG/ML INJ ONE (13:01)
[2017-04-12] MEDS ORDERED: ROCURONIUM 50 MG/5 ML VIAL ONE (13:01)
[2017-04-12] MEDS ORDERED: LIDOCAINE 2% 100 MG/5 ML SYR ONE (13:01)
[2017-04-12] MEDS ORDERED: PROPOFOL/EMULSION 500 MG/50 ML BOTTLE IV ONE (13:02)
[2017-04-12] MEDS ORDERED: fentaNYL 100 MCG/2 ML INJ ONE ×3 (13:02→18:57)
[2017-04-12] MEDS ORDERED: PROPOFOL 200 MG/20 ML VIAL ONE (13:02)
[2017-04-12] MEDS ORDERED: REMIFENTANIL HCL 1 MG VIAL ONE (13:02)
[2017-04-12] MEDS ORDERED: PHENYLEPHRINE HCL 100 MCG/ML SYR ONE (14:23)
[2017-04-12] MEDS ORDERED: PROMETHAZINE HCL 25 MG/ML INJ IVP PRN (16:20)
[2017-04-12] MEDS ORDERED: DEXAMETHASONE 4 MG/ML VIAL IVP PRN (16:20)
[2017-04-12] MEDS ORDERED: NALOXONE HCL 0.4 MG/ML INJ IVP PRN ×2 (16:20→18:11)
[2017-04-12] MEDS ORDERED: OXYCODONE/APAP 5/325 TAB PO PRN (16:20)
[2017-04-12] MEDS ORDERED: ONDANSETRON 4 MG/2 ML VIAL IVP PRN ×2 (16:20→18:11)
[2017-04-12] MEDS ORDERED: ACETAMINOPHEN 500 MG TAB PO PRN (16:20)
[2017-04-12] MEDS ORDERED: LABETALOL HCL 50 MG/10 ML SYR IVP PRN (16:20)
[2017-04-12] MEDS ORDERED: HYDROCODONE/APAP 5/325 TAB PO PRN (16:20)
[2017-04-12] MEDS ORDERED: MEPERIDINE 25 MG/ML SYR IVP PRN (16:20)
--- NOTE | 2017-04-12 16:22 | POSTANESTH ---
Post Anesthetic Evaluation Cardiovascular Status: Normal, Stable, Similar to Pre-Op Cond Respiratory Status: Normal, Stable, Similar to Pre-op Cond. Level of Consciousness/Mental Status: Can Participate in Eval, Moderately Sleepy Pain Control: Adequate, Prn Tx Ordered Nausea/Vomiting Control: Adequate, Prn Tx Ordered Complications Possibly Related to Anesthesia: None Noted
[2017-04-12] MEDS ORDERED: ceFAZolin 1 GM VIAL ONE (16:33)
[2017-04-12] MEDS ORDERED: BISACODYL 10 MG SUPP PR PRN (18:11)
[2017-04-12] MEDS ORDERED: MAGNESIUM HYDROXIDE 30 ML UDCUP PO PRN (18:11)
[2017-04-12] MEDS ORDERED: POLYETHYLENE GLYCOL 3350 17 GM PKT PO PRN (18:11)
[2017-04-12] MEDS ORDERED: diphenhydrAMINE 25 MG CAP PO PRN (18:11)
[2017-04-12] MEDS ORDERED: ONDANSETRON DISINTEGRATING 4 MG TAB PO PRN (18:11)
[2017-04-12] MEDS ORDERED: LACTULOSE 20 GM/30 ML UDCUP PO PRN (18:11)
[2017-04-12] MEDS ORDERED: NS W/ 20 KCl/L 1,000 ML IV SCH (18:15)
--- NOTE | 2017-04-12 18:19 | SOAPPROG ---
SOAP Progress Note Assessment/Plan: Assessment: 72 yo F sp L3-S1 fusion Plan: stable to 3N PT/OT LSO brace in am lovenox starts tomorrow please call with neuro changes 04/12/17 18:18 Subjective: + back pain, no leg pain Objective: Vital Signs Temp Pulse Resp BP Pulse Ox 37.2 C 67 16 149/60 H 93 04/12/17 10:31 04/12/17 10:31 04/12/17 10:31 04/12/17 10:31 04/12/17 10:31 awake, alert PERRL, no facial droop 5/5 + light touch ICD10 Worksheet Patient Problems: Problems Problem Status Onset Fusion of spine of lumbar region Acute Fusion of spine of cervical region Acute - ICD10 Problem Qualifiers (1) Fusion of spine of lumbar region
[2017-04-12] MEDS ORDERED: INSULIN REGULAR HUMAN 100 UNIT/ML ONE (18:46)
[2017-04-12] MEDS: fentaNYL 100 MCG/2 ML INJ IVP PRN ×2 (18:59→19:12)
[2017-04-12] MEDS ORDERED: INSULIN REGULAR HUMAN 100 UNIT/ML SC ONE (19:00)
[2017-04-12] MEDS ORDERED: HYDROmorphONE/DILAUDID 1 MG/ML INJ ONE (19:05)
[2017-04-12] MEDS: HYDROmorphONE/DILAUDID 1 MG/ML INJ IVP PRN ×3 (19:07→19:42)
[2017-04-12] MEDS ORDERED: BENZOCAINE TP PRN (19:30)
[2017-04-12] MEDS: ACETAMINOPHEN 500 MG TAB PO SCH (21:27)
[2017-04-12] MEDS: GABAPENTIN 300 MG CAP PO SCH (21:28)
[2017-04-12] MEDS: morphINE SR 15 MG TAB PO SCH (21:28)
[2017-04-12] MEDS: FAMOTIDINE 20 MG TAB PO SCH (21:28)
[2017-04-12] MEDS: SENNOSIDES/DOCUSATE SODIUM TAB PO SCH ×2 (21:29→21:44)
[2017-04-12] MEDS: ceFAZolin 2 GM/DEXTROSE 100 ML IV SCH (21:29)
[2017-04-12] MEDS: METHOCARBAMOL 750 MG TAB PO PRN (21:49)
[2017-04-12] MEDS: oxyCODONE IR 5 MG TAB PO PRN (21:49)
--- NOTE | 2017-04-12 23:10 | PDGENHP ---
History and Physical - Chief Complaint Diabetes - History of Present Illness Reason for consult: DM management 72 yo F w/ hx of DM admitted for lumbar spinal fusion. Hospital medicine service was consulted for management of diabetes. Patient has hx of NIDDM, takes only oral glyburide and metformin as an outpatient. She does not use insulin. She reports good control with usual BG at home in the 100-120 range. She currently complains only of lower back pain after recent surgery. History Information - Allergies/Home Medication List Allergies/Adverse Reactions: No Known Allergies Allergy (Unverified 12/08/16 17:25) Home Medications: Lovastatin 10 mg PO DAILY 12/07/16 [Last Taken 04/11/17 19:00] Gabapentin [Neurontin 300 MG (*)] 300 mg PO TID 12/08/16 [Last Taken 04/11/17 19 :00] Ascomp With Codeine Cap 1 each PO Q6HRS PRN 12/12/16 [Last Taken 12/10/16] Acetaminophen/ASA/Caffeine [Excedrin Tablet (*)] 1 each PO DAILY PRN 03/20/17 [ Last Taken Unknown] Dextrose [Glucose] 12 - 15 gm PO DAILY PRN 03/20/17 [Last Taken 02/22/17] Ibuprofen [Motrin (*)] 200 mg PO DAILY PRN 03/20/17 [Last Taken 1 Week Ago ~11/15] Omeprazole 40 mg PO DAILY PRN 03/20/17 [Last Taken Unknown] metFORMIN HCL [Glucophage 500 mg (*)] 500 mg PO BIDMEAL 03/20/17 [Last Taken 05/18 19:00] Omeprazole [Prilosec 20 mg] 20 mg PO DAILY 03/22/17 [Last Taken 1 Month Ago ~06/17] Benzocaine [Anbesol] 9 gm MM DAILY PRN 03/29/17 [Last Taken 1 Week Ago ~04/05/17 ] diphenhydrAMINE [Benadryl 50 MG (*)] 50 mg PO DAILY PRN 03/29/17 [Last Taken 2 Months Ago ~02/10/17] Ferrous Sulfate [Ferrous Sulf 325 MG (*)] 325 mg PO DAILY 04/04/17 [Last Taken 04/11/17 18:00] glyBURIDE [Micronase] 5 mg PO DAILY 04/04/17 [Last Taken 04/11/17 19:00] I have personally reviewed and updated: family history, medical history - Past Medical History arthritis, diabetes type 2 - Surgical History Reports: spinal surgery - Family History Positive for: diabetes type II - Social History Smoking Status: Former smoker Review of Systems Review of Systems: ROS: 10pt was reviewed & negative except for what was stated in HPI & below Physical Exam Physical Exam: Temp Pulse Resp BP Pulse Ox 36.6 C 82 17 109/61 95 04/12/17 22:24 04/12/17 22:24 04/12/17 22:24 04/12/17 22:24 04/12/17 22:24 O2 (L/minute) 2 Constitutional: no apparent distress, appears nourished Eyes: PERRL, EOMI Ears, Nose, Mouth, Throat: moist mucous membranes, no oral mucosal ulcers Cardiovascular: regular rate and rhythym, no murmur, rub, or gallop Respiratory: no respiratory distress, no rales or rhonchi Gastrointestinal: normoactive bowel sounds, soft, non-tender abdomen Skin: warm, normal color Musculoskeletal: full muscle strength, no muscle tenderness Neurologic: AAOx3, CN II-XII Intact Psychiatric: interacting appropriately, not anxious Lab Data & Imaging Review POC Glucose 231 mg/dL (70-100) H 04/12/17 18:31 Assessment & Plan Assessment: 72 yo F admitted for lumbar spinal fusion, hospital service consulted for diabetes management. Plan: 1. NIDDM - Patient reports good control with only oral agents at home. Noting recent surgery, will discontinue oral agents and opt for sliding scale insulin instead. - Check BMP with AM labs to assess renal function - Low dose SSI ordered, titrate as necessary - Ok to resume oral agents on discharge as long as renal function remains WNL Hospital service will follow along with you, thank you for involving us in the care of this patient.
--- NOTE | 2017-04-12 23:39 | GOP ---
[f rep st] OPERATIVE REPORT DATE OF OPERATION: 04/12/2017 SURGEON: López Raymond MD FURNACE OPERATOR: ROSAMARIA Berg ANESTHESIA: General endotracheal. PREOPERATIVE DIAGNOSIS: Severe multilevel lumbar degenerative disk disease and critical spinal steno sis with multilevel unstable spondylolisthesis/instability. Intractable low back pain and bilateral lower extremity radicular and neurogenic claudication symptoms. Failed conservative care. High risk surgical candidate given age of 72 years, comorbidities, and required surgical intervention. POSTOPERATIVE DIAGNOSIS: Severe multilevel lumbar degenerative disk disease and critical spinal sten osis with multilevel unstable spondylolisthesis/instability. Intractable low back pain and bilateral lower extremity radicular and neurogenic claudication symptoms. Failed conservative care. High ris k surgical candidate given age of 72 years, comorbidities, and required surgical intervention. PROCEDURE PERFORMED: Left-sided L3-4, L4-5, and L5-S1 far lateral transpedicular decompression with L3 through S1 posterior segmental (pedicle screw and axle device) fixation and posterolateral fusion with local autograft, bone morphogenic protein, and morselized allograft. L3-4, L4-5, and L5-S1 post erior/transforaminal lumbar interbody fusion with 2 structural PEEK interbody spacers, local autograf t and bone morphogenic protein at each level. Use of intraoperative microscopy, fluoroscopy, and com puter volumetric stereotactic navigation with intraoperative neurophysiologic testing. Injection of intrathecal narcotic analgesics and subcutaneous and intramuscular local anesthesia for postoperative pain control. FINDINGS: ESTIMATED BLOOD LOSS: 250 cc. INDICATIONS: The patient is a 72-year-old woman with intractable low back pain and bilateral lower e xtremity radicular and neurogenic claudication symptoms secondary to multilevel severe degenerative d isk disease, spondylolisthesis, instability and critical spinal stenosis and lateral recess impingeme nt. She presents now for surgical decompression and stabilization from L3 to S1 after failing extens alberto conservative care. The patient understands she is very high risk and there is no guarantee of a good outcome from many standpoints. DESCRIPTION OF PROCEDURE: After informed consent was obtained, the patient was taken to the operatin g room and placed in the prone position on the Henry table. The lumbosacral areas were prepped and draped in sterile fashion. After fluoroscopic localization of correct levels, the subcutaneous and intramuscular tissues were infiltrated with local anesthesia. A midline linear incision was then cre ated over the L3 to S1 spinous processes. This was carried down to the fascial layer, which was inci sed using monopolar electrocautery and carried in a subperiosteal plane along the spinous processes a nd out the lamina bilaterally. Intraoperative fluoroscopy was again utilized to verify the correct l evels. Following this, the dissection was carried out over the facet joints and the microscope was t hen brought in. The left-sided far lateral transpedicular decompressions were performed at the L3-4, L4-5, and L5-S1 levels with complete removal of the facet joints and neural foramina at L3, L4, L5, and S1. The microscope was angled across the midline and bilateral central canal lateral recess deco mpressions were performed at each level as well. Following adequate decompression, the [employer] neuro navigational system was brought in and using computer volumetric stereotactic navigation, pedicle scr ews were placed at L3, L4, L5 and S1 bilaterally. The patient's bone was very brittle and the L3 ped icle on the left broke in half but still held the screw reasonably well and I was felt that it was in the best interest of the patient to leave it in place. I also felt that added fixation at the super ior and inferior aspect of the construct would definitely lower the risk of hardware failure, nonunio n, and further problems. Following this, individual rods were placed first at L5-S1, then at L3-4, t hen at L4-5 during which time a slight amount of distraction was created across the interspaces indiv idually and complete diskectomies were performed with preparation of endplates and placement of 2 str uctural PEEK interbody spacers, local autograft and bone morphogenic protein at each level for L3-4, L4-5, and L5-S1 posterior/transforaminal lumbar interbody fusions. Following this, the small individ ual rods were removed and new maximally lordotically curved rods were placed from L3 through S1. The se were secured with locking caps under slight amount of compression in order to facilitate bony unio n and minimize the potential for posterior graft migration. The remaining facet joints and lamina on the right were then extensively decorticated, and the residual local autograft along with bone morph ogenic protein and morselized allograft was placed out laterally for posterolateral fusion from L3 to S1. Axle devices were then placed at the L3-4 and L5-S1 levels, in order to hopefully prevent hardw are failure or screw breakout and a nonunion and further surgical problems. A drain was then placed. The subcutaneous and intramuscular tissues were re-infiltrated with local anesthesia. 200 mcg of D uramorph along with 50 mcg of fentanyl were injected intrathecally and the wound was closed in a laye red fashion using interrupted Vicryl sutures followed by Steri-Strips on the skin. COMPLICATIONS: None. DISPOSITION: The patient is currently in the process of being repositioned for extubation. /[id number]/MODL
[2017-04-13] MEDS: oxyCODONE IR 5 MG TAB PO PRN ×3 (04:05→12:47)
[2017-04-13] MEDS: ACETAMINOPHEN 500 MG TAB PO SCH ×3 (05:39→20:41)
[2017-04-13] MEDS: METHOCARBAMOL 750 MG TAB PO PRN (05:39)
[2017-04-13] MEDS: ceFAZolin 2 GM/DEXTROSE 100 ML IV SCH (05:41)
[2017-04-13 06:21] LABS: % IMMATURE GRANULYOCYTES 0.4 % (0.0-1.1); ABSOLUTE IMMATURE GRANULOCYTES 0.04 10^3/uL (0.00-0.10); ADD DIFF? NO; ADD MORPH? NO; ADD SCAN? NO; ATYPICAL LYMPHOCYTE FLAG 0 (0-99); FRAGMENT RBC FLAG 20 (0-99); HEMATOCRIT 24.9 % (38.0-47.0); HEMOGLOBIN 7.8 g/dL (12.6-16.3); LEFT SHIFT FLG 10 (0-99); LIPEMIA HEMOLYSIS FLAG 80 (0-99); MEAN CELL HEMOGLOBIN 27.7 pg (27.9-34.1); MEAN CELL HEMOGLOBIN CONCENTR. 31.3 g/dL (32.4-36.7); MEAN CELL VOLUME 88.3 fL (81.5-99.8); MEAN PLATELET VOLUME 12.4 fL (8.7-11.7); PLATELET CLUMPS FLAG 10 (0-99); PLATELET COUNT 102 10^3/uL (150-400); RED BLOOD CELL COUNT 2.82 10^6/uL (4.18-5.33)
[2017-04-13 06:51] LABS: ANION GAP 2 mEq/L (8-16); CALCIUM 8.6 mg/dL (8.5-10.4); CARBON DIOXIDE 27 mEq/l (22-31); CHLORIDE 102 mEq/L (97-110); CREATININE 0.9 mg/dL (0.6-1.0); GLOMERULAR FILTRATION RATE > 60; GLUCOSE 97 mg/dL (70-100); POTASSIUM 4.5 mEq/L (3.5-5.2); SODIUM 131 mEq/L (134-144)
[2017-04-13] MEDS ORDERED: metFORMIN HCL 500 MG TAB PO SCH (08:00)
[2017-04-13] MEDS: POLYETHYLENE GLYCOL 3350 17 GM PKT PO SCH ×3 (08:11→20:47)
[2017-04-13] MEDS: ENOXAPARIN 40 MG/0.4 ML SYR SC SCH (08:11)
[2017-04-13] MEDS: GABAPENTIN 300 MG CAP PO SCH ×3 (08:12→20:37)
[2017-04-13] MEDS: SENNOSIDES/DOCUSATE SODIUM TAB PO SCH ×2 (08:12→20:47)
[2017-04-13] MEDS: morphINE SR 15 MG TAB PO SCH ×2 (08:12→20:37)
[2017-04-13] MEDS: PRAVASTATIN SODIUM 10 MG TAB PO SCH (08:12)
[2017-04-13] MEDS: FERROUS SULFATE 325 MG TAB PO SCH (08:13)
[2017-04-13] MEDS: FAMOTIDINE 20 MG TAB PO SCH ×2 (08:13→20:37)
--- NOTE | 2017-04-13 08:39 | SOAPPROG ---
SOAP Progress Note Assessment/Plan: Assessment: POD #1 sp L3-S1 TLIF. Doing OK, she is concerned that her preop symptoms ( especially her bilateral knee tightness) has not improved. Na 131 today Plan: Hospitalist consult for assistance in medical management pain management PT/OT xrays lumbar spine today encourage out of bed Lovenox started this AM Dr. Ny saw patient this AM 04/13/17 08:35 04/13/17 08:41 Subjective: awake, complains of incisional pain and is worried that her bilateral knee tightness has not improved. Objective: Vital Signs Temp Pulse Resp BP Pulse Ox 37.9 C 99 15 111/47 L 95 04/13/17 07:39 04/13/17 07:39 04/13/17 07:39 04/13/17 07:39 04/13/17 07:39 Laboratory Results 04/13/17 05:15 04/13/17 05:15 04/12/17 04/13/17 04/14/17 05:59 05:59 05:59 Intake Total 3260 800 Output Total 745 510 Balance 2515 290 Dressing: CDI JOSIE: 60ml Neuro: PEÑALOZA, sens +LT ICD10 Worksheet Patient Problems: Problems Problem Status Onset Fusion of spine of lumbar region Acute Fusion of spine of cervical region Acute
[2017-04-13] MEDS ORDERED: GLUCOSE-INSTA 15 GM TUBE PO PRN (09:00)
[2017-04-13] MEDS ORDERED: NON-FORMULARY NEW DRUG (Omeprazole [Prilosec 20 Mg] 20 MG) PO SCH (09:00)
[2017-04-13] MEDS ORDERED: PANTOPRAZOLE SODIUM 40 MG TAB PO PRN (09:00)
[2017-04-13] MEDS ORDERED: glyBURIDE 5 MG TAB PO SCH (09:00)
[2017-04-13] MEDS: INSULIN LISPRO 100 UNIT/ML SC SCH ×3 (12:41→19:00)
--- NOTE | 2017-04-13 15:11 | ASMTCMCOM ---
CM Note CM Note Notes: PT/OT rec SNF. Pt was at [facility] in November 2016, referral sent. RN Huong spoke w pt [employer]ER [employer]IVER who agrees pt needs SNF as there are not services in place to manage pt at home. When pt was at [facility] in November pt refused SNF and was not truthful about having 24/7 care (see notes from then). It was with encouragement from [employer] she went to the [facility] then. CM to follow. Date Signed: 04/13/2017 03:10 PM Electronically Signed By:NARAYAN Dominguez
--- NOTE | 2017-04-13 15:49 | HOSPPROG ---
Hospitalist Progress Note Assessment/Plan: Assessment: 72 yo F admitted for lumbar spinal fusion, hospital service consulted for diabetes management. Plan: # Acute blood loss anemia. Hgb 7.8, currently fatigued but patient reports poor sleep, so cont to monitor Hgb daily and transfuse for either Hgb < 7 OR symptomatic lethargy w/ rehab/hypoxia # NIDDM. Chronic, given her neuropathy which has been present for approx 1 year , reasonable to check A1c and gauge whether she should be started on insulin vs. uptitrated on metformin/sulfonureas vs. add 3rd oral agent - holding metformin/glyburide while PO intake variable, on low-dose ISS w/ AC checks # Hyponatremia. Acute, likely 2/2 combination of hypovolemia and free water increase, place on 1.5L/day restriction, stop further IVF - repeat level in AM # Neuropathy. Chronic, cont gabapentin # Back pain. NSGY primary, POD#1, mgmt under direction of primary service Hospital service will continue to consult daily. Subjective: ongoing paresthesias bilat LE, no BM, patient declining bowel regimen Objective: Vital Signs Temp Pulse Resp BP Pulse Ox 37.9 C 87 16 90/37 L 93 04/13/17 07:39 04/13/17 15:02 04/13/17 15:02 04/13/17 15:02 04/13/17 15:02 Laboratory Results 04/13/17 05:15 04/13/17 05:15 04/12/17 04/13/17 04/14/17 05:59 05:59 05:59 Intake Total 3260 800 Output Total 745 595 Balance 2515 205 - Physical Exam Constitutional: no apparent distress, not in pain, chronically ill appearing, uncomfortable Cardiovascular: regular rate and rhythym, no murmur, rub, or gallop, No edema Respiratory: reduced air movement (bilat bases), No expiratory wheeze, No inspiratory crackles, No bronchial breath sounds, No respiratory distress Gastrointestinal: normoactive bowel sounds, soft, non-tender abdomen, no palpable masses, distension (mildly) Neurologic: AAOx3, No sensation intact bilaterally (bilat subjective paresthesias LE), No weakness (motor 5/5 bilat LE) Psychiatric: not anxious, not encephalopathic, flat affect, No agitated ICD10 Worksheet Patient Problems: Problems Problem Status Onset Fusion of spine of cervical region Acute Fusion of spine of lumbar region Acute
[2017-04-13] MEDS ORDERED: NS 1,000 ML IV ONE (16:10)
[2017-04-13 16:43] LABS: HEMATOCRIT 22.1 % (38.0-47.0)
[2017-04-13 16:47] LABS: HEMOGLOBIN 6.8 g/dL (12.6-16.3)
[2017-04-14] MEDS: oxyCODONE IR 5 MG TAB PO PRN ×4 (04:31→20:47)
[2017-04-14] MEDS: METHOCARBAMOL 750 MG TAB PO PRN ×2 (04:32→17:40)
[2017-04-14 05:24] LABS: HEMATOCRIT 25.2 % (38.0-47.0)
[2017-04-14 05:39] LABS: ANION GAP 4 mEq/L (8-16); CALCIUM 8.7 mg/dL (8.5-10.4); CARBON DIOXIDE 24 mEq/l (22-31); CHLORIDE 103 mEq/L (97-110); CREATININE 0.9 mg/dL (0.6-1.0); GLOMERULAR FILTRATION RATE > 60; GLUCOSE 178 mg/dL (70-100); SODIUM 131 mEq/L (134-144)
[2017-04-14 05:51] LABS: TROPONIN I < 0.012 ng/mL (0.000-0.034)
--- NOTE | 2017-04-14 07:41 | SOAPPROG ---
SOAP Progress Note Assessment/Plan: Assessment: 72 yo F POD #2 L3-S1 fusion Plan: stable and doing well overall :) post op x-rays look good PT/OT LSO brace when out of bed scd/martín/lovenox for dvt prophylaxis she may need inpatient rehab please call with neuro changes 04/12/17 18:18 04/14/17 07:39 Subjective: continued back pain, no leg pain, no weakness. Objective: Vital Signs Temp Pulse Resp BP Pulse Ox 37.4 C 96 16 123/54 H 99 04/14/17 07:35 04/14/17 07:35 04/14/17 07:35 04/14/17 07:35 04/14/17 07:35 Laboratory Results 04/14/17 04:53 04/14/17 04:53 04/13/17 04/14/17 04/15/17 05:59 05:59 05:59 Intake Total 3260 1550 Output Total 745 695 Balance 2515 855 AAOx4, +FC PERRL, EOMI, no facial droop 5/5 + light touch C/D/I ICD10 Worksheet Patient Problems: Problems Problem Status Onset Fusion of spine of lumbar region Acute Fusion of spine of cervical region Acute - ICD10 Problem Qualifiers (1) Fusion of spine of lumbar region
[2017-04-14] MEDS: ENOXAPARIN 40 MG/0.4 ML SYR SC SCH (09:01)
[2017-04-14] MEDS: ACETAMINOPHEN 500 MG TAB PO SCH ×3 (09:02→20:48)
[2017-04-14] MEDS: FERROUS SULFATE 325 MG TAB PO SCH (09:02)
[2017-04-14] MEDS: INSULIN LISPRO 100 UNIT/ML SC SCH ×3 (09:02→17:55)
[2017-04-14] MEDS: morphINE SR 15 MG TAB PO SCH ×2 (09:02→20:47)
[2017-04-14] MEDS: FAMOTIDINE 20 MG TAB PO SCH ×2 (09:02→20:47)
[2017-04-14] MEDS: SENNOSIDES/DOCUSATE SODIUM TAB PO SCH ×2 (09:02→20:48)
[2017-04-14] MEDS: GABAPENTIN 300 MG CAP PO SCH ×3 (09:02→20:47)
[2017-04-14] MEDS: PRAVASTATIN SODIUM 10 MG TAB PO SCH (09:02)
[2017-04-14] MEDS: POLYETHYLENE GLYCOL 3350 17 GM PKT PO SCH ×3 (10:28→20:48)
--- NOTE | 2017-04-14 11:46 | HOSPPROG ---
Hospitalist Progress Note Assessment/Plan: Hospitalist Progress Note Assessment/Plan: 72 yo F admitted for lumbar spinal fusion, hospital service consulted for diabetes management. First encounter, chart reviewed. D/W CM. Plan: # Acute blood loss anemia. - Hgb 6.8, yesterday. Up today after transfusion. - cont to monitor Hgb daily and transfuse for either Hgb < 7 OR symptomatic lethargy w/ rehab/hypoxia # NIDDM. - Chronic, given her neuropathy, A1c pending - holding metformin/glyburide while PO intake variable, on low-dose ISS w/ AC checks - restart metformin # Hyponatremia. - Acute, likely 2/2 combination of hypovolemia and free water increase, place on 1.5L/day restriction, stop further IVF - stable, multifactorial # Hypotension. - resolved, suspect 2/2 combination of hypovolemia and pain Rx effect # Neuropathy. - Chronic, cont gabapentin # Back pain. - NSGY primary, POD#2, mgmt under direction of primary service #Dispo -check H/H in am if stable ok for DC -rec SNF rehab -reviewed with PT Hospital service will continue to consult daily. Subjective: Feeling ok. Difficult to get out of bed. Still having some pain. Objective: Vital Signs Temp Pulse Resp BP Pulse Ox 37.4 C 96 16 123/54 H 99 04/14/17 07:35 04/14/17 07:35 04/14/17 07:35 04/14/17 07:35 04/14/17 07:35 Laboratory Results 04/14/17 04:53 04/14/17 04:53 04/13/17 04/14/17 04/15/17 05:59 05:59 05:59 Intake Total 3260 1550 Output Total 745 695 Balance 2515 855 - Physical Exam Constitutional: no apparent distress, appears nourished, uncomfortable Eyes: PERRL, anicteric sclera, EOMI Ears, Nose, Mouth, Throat: moist mucous membranes, hearing normal, ears appear normal Cardiovascular: regular rate and rhythym, No JVD, No edema Respiratory: no respiratory distress, no rales or rhonchi, reduced air movement Gastrointestinal: normoactive bowel sounds, No tenderness, No ascites Skin: warm, normal color, No erythema Musculoskeletal: normal joint ROM, pain with ROM, generalized weakness Neurologic: AAOx3 Psychiatric: interacting appropriately, not anxious, not encephalopathic, thought process linear ICD10 Worksheet Patient Problems: Problems Problem Status Onset Fusion of spine of cervical region Acute Fusion of spine of lumbar region Acute
--- NOTE | 2017-04-14 12:59 | ASMTCMCOM ---
CM Note CM Note Notes: Today SWer confirmed with [facility] that Pt. will have a private room. Spoke w/ Pt. in room. Pt. plans to go to SNF rehab at the [facility] when ready for d/c. At Pt's request, gave her SWer's business card. Plan: SNF at the [facility] in a private room Date Signed: 04/14/2017 12:58 PM Electronically Signed By:Amada Baugh LCSW
[2017-04-14] MEDS: metFORMIN HCL 500 MG TAB PO SCH (17:39)
[2017-04-14 23:57] VITALS: PULSE 92; RESP 16
[2017-04-15 07:32] VITALS: BP 136/71; TEMP 99.5; O2SAT 91
[2017-04-15] MEDS: oxyCODONE IR 5 MG TAB PO PRN ×2 (08:16→13:44)
[2017-04-15] MEDS: POLYETHYLENE GLYCOL 3350 17 GM PKT PO SCH (08:16)
[2017-04-15] MEDS: FERROUS SULFATE 325 MG TAB PO SCH (08:16)
[2017-04-15] MEDS: metFORMIN HCL 500 MG TAB PO SCH (08:16)
[2017-04-15] MEDS: PRAVASTATIN SODIUM 10 MG TAB PO SCH (08:16)
[2017-04-15] MEDS: ACETAMINOPHEN 500 MG TAB PO SCH ×2 (08:16→13:03)
[2017-04-15] MEDS: FAMOTIDINE 20 MG TAB PO SCH (08:16)
[2017-04-15] MEDS: SENNOSIDES/DOCUSATE SODIUM TAB PO SCH (08:16)
[2017-04-15] MEDS: ENOXAPARIN 40 MG/0.4 ML SYR SC SCH (08:17)
[2017-04-15] MEDS: morphINE SR 15 MG TAB PO SCH (08:17)
[2017-04-15] MEDS: GABAPENTIN 300 MG CAP PO SCH (08:17)
--- NOTE | 2017-04-15 09:22 | SOAPPROG ---
SOAP Progress Note Assessment/Plan: Assessment: 72 yo F POD #3 L3-S1 fusion Plan: stable and doing well overall :) post op x-rays look good anemia better after transfusion PT/OT LSO brace when out of bed ok to discharge to rehab if cleared by IM appreciate Hospitalists help with medical issues please call with neuro changes 04/12/17 18:18 04/14/17 07:39 04/15/17 09:21 Subjective: continued back pain, no leg weakness. no leg pain. Objective: Vital Signs Temp Pulse Resp BP Pulse Ox 37.5 C 92 16 136/71 H 91 L 04/15/17 07:31 04/15/17 07:31 04/15/17 07:31 04/15/17 07:31 04/15/17 07:31 Laboratory Results 04/14/17 04:53 04/14/17 04:53 04/14/17 04/15/17 04/16/17 05:59 05:59 05:59 Intake Total 1550 1200 Output Total 695 90 Balance 855 1110 AAOx4, +FC PERRL, EOMI, no facial droop 5/5 + light touch C/D/I ICD10 Worksheet Patient Problems: Problems Problem Status Onset Fusion of spine of lumbar region Acute Fusion of spine of cervical region Acute - ICD10 Problem Qualifiers (1) Fusion of spine of lumbar region
[2017-04-15] MEDS: INSULIN LISPRO 100 UNIT/ML SC SCH ×2 (09:34→13:02)
[2017-04-15 10:42] LABS: HEMOGLOBIN 7.8 g/dL (12.6-16.3)
--- NOTE | 2017-04-15 11:05 | HOSPPROG ---
Hospitalist Progress Note Assessment/Plan: Hospitalist Progress Note Assessment/Plan: 72 yo F admitted for lumbar spinal fusion, hospital service consulted for diabetes management. Plan: # Acute blood loss anemia. - Hgb 7.8 today stable no signs of bleeding # NIDDM. - Chronic, given her neuropathy, A1c pending - restart glyburide - restart metformin # Hyponatremia. - Acute, likely 2/2 combination of hypovolemia and free water increase, place on 1.5L/day restriction, stop further IVF - stable, multifactorial # Hypotension. - resolved, suspect 2/2 combination of hypovolemia and pain Rx effect # Neuropathy. - Chronic, cont gabapentin # Back pain. - NSGY primary, POD#2, mgmt under direction of primary service #Dispo -ok from medicine to DC to SNF Hospital service will continue to consult daily. Subjective: Up in chair. Feels good. Still having some pain. Objective: Vital Signs Temp Pulse Resp BP Pulse Ox 37.5 C 92 16 136/71 H 91 L 04/15/17 07:31 04/15/17 07:31 04/15/17 07:31 04/15/17 07:31 04/15/17 07:31 Laboratory Results 04/15/17 10:25 04/14/17 04:53 04/14/17 04/15/17 04/16/17 05:59 05:59 05:59 Intake Total 1550 1200 Output Total 695 90 Balance 855 1110 - Physical Exam Constitutional: appears nourished, uncomfortable Eyes: PERRL, anicteric sclera Ears, Nose, Mouth, Throat: moist mucous membranes, hearing normal Cardiovascular: No JVD, No edema Respiratory: no respiratory distress, reduced air movement Gastrointestinal: No tenderness, No ascites Skin: warm, normal color Musculoskeletal: pain with ROM, muscular tenderness, generalized weakness Neurologic: AAOx3 Psychiatric: not anxious, not encephalopathic, thought process linear ICD10 Worksheet Patient Problems: Problems Problem Status Onset Fusion of spine of cervical region Acute Fusion of spine of lumbar region Acute
[2017-04-15] MEDS ORDERED: FERROUS SULFATE 140 MG TAB.ER PO SCH (11:30)
[2017-04-15] MEDS ORDERED: glyBURIDE 5 MG TAB PO SCH (11:30)
--- NOTE | 2017-04-15 11:39 | PDIAF ---
- Diagnosis Code Status: Full Code - Medication Management Discharge Medications: Medications to Continue on Transfer Lovastatin 10 mg PO DAILY 12/07/16 [Last Taken 04/11/17 19:00] Gabapentin [Neurontin 300 MG (*)] 300 mg PO TID 12/08/16 [Last Taken 04/11/17 19 :00] Ascomp With Codeine Cap 1 each PO Q6HRS PRN 12/12/16 [Last Taken 12/10/16] Dextrose [Glucose] 12 - 15 gm PO DAILY PRN 03/20/17 [Last Taken 02/22/17] Ibuprofen [Motrin (*)] 200 mg PO DAILY PRN 03/20/17 [Last Taken 1 Week Ago ~11/15] Omeprazole 40 mg PO DAILY PRN 03/20/17 [Last Taken Unknown] metFORMIN HCL [Glucophage 500 mg (*)] 500 mg PO BIDMEAL 03/20/17 [Last Taken 05/18 19:00] Omeprazole [Prilosec 20 mg] 20 mg PO DAILY 03/22/17 [Last Taken 1 Month Ago ~06/17] Benzocaine [ANBESOL] 9 gm MM DAILY PRN 03/29/17 [Last Taken 1 Week Ago ~04/05/17 ] diphenhydrAMINE [Benadryl 50 MG (*)] 50 mg PO DAILY PRN 03/29/17 [Last Taken 2 Months Ago ~02/10/17] Ferrous Sulfate [Ferrous Sulf 325 MG (*)] 325 mg PO DAILY 04/04/17 [Last Taken 04/11/17 18:00] glyBURIDE [Micronase 5 mg] 5 mg PO DAILY 04/04/17 [Last Taken 04/11/17 19:00] Enoxaparin [Lovenox 40 MG (*)] 40 mg SC DAILY syr 04/15/17 [Last Taken Unknown] Methocarbamol [Robaxin 750 mg (*)] 750 mg PO QID PRN tab 04/15/17 [Last Taken Unknown] Polyethylene Glycol 3350 [Miralax 17 gm (*)] 17 gm PO DAILY PRN pkt 04/15/17 [ Last Taken Unknown] morphINE SR [Ms Contin/Oramorph 15 mg (*)] 15 mg PO BID tab 04/15/17 [Last Taken Unknown] oxyCODONE IR [Oxycodone Ir (*)] 5 - 10 mg PO Q4HRS PRN tab 04/15/17 [Last Taken Unknown] Discharge Medications: Refer to the Discharge Home Medication list for PRN reason. PICC Care - Routine: N/A - Orders Services needed: Registered Nurse, Physical Therapy, Occupational Therapy Diet Recommendation: no restrictions on diet, ADA 2000 consistent carb, ADA 2200 consistent carb Diet Texture: Regular Texture Diet Wound Care Instructions: remove lumbar JOSIE on 04/17/17 - Follow Up Care Current Providers and Referrals: DARREN DE GUZMAN [Primary Care Provider] -
--- NOTE | 2017-04-15 12:35 | ASMTCMCOM ---
CM Note CM Note Notes: Per MD patient ok to dc. Patient to go to the [facility] in [place]. Orders and PASRR via [employer]. Spoke with [facility] and patient RN awaiting transport information. All orders sent via [employer]. CM available for further needs. Date Signed: 04/15/2017 12:34 PM Electronically Signed By:Gypsy Graham RN
--- NOTE | 2017-04-15 15:31 | ASDISCHSUM ---
Discharge Information Plan Status:SNF Medically Cleared to Leave:04/15/2017 Discharge Date:04/15/2017 02:26 PM D/C Disposition:Long Term Facility ADT D/C Disposition:Long Term Facility Projected Discharge Date:04/15/2017 11:00 AM Transportation at D/C:Wheelchair Van Discharge Delay Reason: Follow-Up Date:04/15/2017 11:00 AM Discharge Slot: Final Diagnosis: Placement Information Referral Type:*Long Term/SNF Referral ID:[id number] Provider Name:[facility] Address 1:[address] Address 2: City:[place] Selection Factors: State:[place] Patient Contact Information Contact Name:GRACIE Relationship:Sister Address: Work Phone: [facility] Phone: [facility]/Zip Code: Email: Financial Information Financial Class:Medicare Advantage Plans Primary Plan Desc:[facility] ADVANTAGE PLANS Primary Plan Number:[id number] Secondary Plan Desc: Secondary Plan Number: Assessment Information [facility] CM Progress Note CM Note CM Note Notes: PT/OT rec SNF. Pt was at [facility] in November 2016, referral sent. YULIYA Borja spoke w pt SURVEYING TECHNICIAN who agrees pt needs SNF as there are not services in place to manage pt at home. When pt was at [facility] in November pt refused SNF and was not truthful about having 22/01 care (see notes from then). It was with encouragement from SURVEYING TECHNICIAN she went to the [facility]. CM to follow. Date Signed: 04/13/2017 03:10 PM Electronically Signed By:NARAYAN Dominguez [facility] CM Progress Note CM Note CM Note Notes: Today SWer confirmed with [facility] that Pt. will have a private room. Spoke w/ Pt. in room. Pt. plans to go to SNF rehab at the [facility] when ready for d/c. At Pt's request, gave her SWer's business card. Plan: SNF at the [facility] in a private room Date Signed: 04/14/2017 12:58 PM Electronically Signed By:Amada Baugh LCSW [facility] CM Progress Note CM Note CM Note Notes: Per MD patient ok to dc. Patient to go to the [facility] in [place]. Orders and PASRR via [employer]. Spoke with [facility] and patient RN awaiting transport information. All orders sent via [employer]. CM available for further needs. Date Signed: 04/15/2017 12:34 PM Electronically Signed By:Gypsy Graham RN Intervention Information
[2017-04-16 02:02] LABS: HEMOGLOBIN A1C 6.8 % (4.0-6.0)
[2017-04-16] MEDS ORDERED: glyBURIDE 5 MG TAB PO SCH (08:00)
== END 2017-04-15 14:26 | DRG 460 ==
LOC: F3N 09:17
PROVIDERS: ADMIT Neurological Surgery; ATTEND Neurological Surgery
DX: M43.16 Spondylolisthesis, lumbar region (principal); M51.36 Other intervertebral disc degeneration, lumbar region; E11.40 Type 2 diabetes mellitus with diabetic neuropathy, unspecified; D62 Acute posthemorrhagic anemia; E87.1 Hypo-osmolality and hyponatremia; I95.9 Hypotension, unspecified; Z87.891 Personal history of nicotine dependence; Z98.1 Arthrodesis status
CPT/HCPCS: 97116-GP; 97161-GP; 97165-GO; 97530-GO; 97530-GP; 97535-GO; C1713; C1762; G8978-GP-CJ; G8979-GP-CI; G8980-GP-CI; G8987-GO-CL; G8988-GO-CI; J0171; J0690; J1100; J1170; J1650; J1815; J2001; J2250; J2274; J2370; J2405; J2704; J3010; J7060

== ENCOUNTER → 2017-11-16 | Outpatient (CLI) | payer OTHER, MEDICAID | LOC: FIMAGING 10:40 | PROVIDERS: ATTEND Physician Assistant Surgical | DX: S13.180A Subluxation of C7/T1 cervical vertebrae, initial encounter (principal); Z98.1 Arthrodesis status ==